=== PATIENT | male | born 2000 | race African-American/Black ===

== ENCOUNTER 2022-10-04 07:21 | Emergency (ER) | payer SELFPAY ==
[2022-10-04] MEDS ORDERED: Ibuprofen 800 MG TAB ONE (09:24)
[2022-10-04 10:42] LABS: SARS-CoV-2 NAA Rapid Test Not Detected (NotDetected)
== END 2022-10-04 12:07 | disposition home or self-care (01) ==
LOC: ERS 07:21
DX: J01.90 Acute sinusitis, unspecified (principal); J06.9 Acute upper respiratory infection, unspecified; Z20.822 Contact with and (suspected) exposure to COVID-19
CPT/HCPCS: 99284